=== PATIENT | female | born 1985 | race Caucasian/White ===

== ENCOUNTER 2016-10-19 18:15 | Observation (INO) | payer OTHER ==
[~2016-10-19] VITALS: Ht 149.9 cm; Wt 50.3 kg
[~2016-10-19 18:15] MED LIST: IBUP-1480 PO; OXYC-130 PO
[2016-10-19 18:28] VITALS: BP_SYST 109
== END 2016-10-19 19:10 | disposition home or self-care (01) ==
LOC: SPU 18:15
PROVIDERS: ADMIT Obstetrics & Gynecology; ATTEND Obstetrics & Gynecology
DX: O26.893 Other specified pregnancy related conditions, third trimester (principal); R10.9 Unspecified abdominal pain; Z3A.38 38 weeks gestation of pregnancy
CPT/HCPCS: 81002; G0378

== ENCOUNTER 2016-10-26 05:05 | Inpatient (IN) | payer OTHER ==
[~2016-10-26] VITALS: Ht 149.9 cm; Wt 49.9 kg
[2016-10-26] MEDS ORDERED: LR 1,000 ML IV ONE ×2 (05:13→08:14)
[2016-10-26] MEDS ORDERED: CEFAZOLIN 2 GM IVPB PREMIX 50 ML IV ONE (05:15)
[2016-10-26 07:01] VITALS: BP 135/83; PULSE 86; RESP 20; TEMP 97.9
[2016-10-26] MEDS ORDERED: LR 1,000 ML IV.SOLN IV ONE (07:11)
[2016-10-26] MEDS ORDERED: ONDANSETRON HCL 4 MG/2 ML VIAL IVP ONE (07:11)
[2016-10-26] MEDS ORDERED: NS IRRIG SOLN 1000 ML IR ONE (07:11)
[2016-10-26] MEDS ORDERED: DEXAMETHASONE SOD PHOSPHATE 4 MG/ML VIAL IVP ONE (07:11)
[2016-10-26] MEDS ORDERED: MORPHINE SULFATE 10MG/10ML PF AMP EP ONE (07:11)
[2016-10-26] MEDS ORDERED: OXYTOCIN 10 UNIT/ML VIAL IV ONE (07:11)
[2016-10-26] MEDS ORDERED: DIPHENHYDRAMINE INJ 50 MG/ML VIAL IVP PRN (08:15)
[2016-10-26] MEDS ORDERED: NALOXONE HCL 0.4 MG/ML AMP (NARCAN) IVP PRN (08:15)
[2016-10-26] MEDS ORDERED: fentaNYL CITRATE/PF 100 MCG/2 ML AMP IVP PRN (08:15)
[2016-10-26] MEDS ORDERED: ePHEDrine sulfate 50 MG/ML VIAL IVP PRN (08:15)
[2016-10-26] MEDS ORDERED: ONDANSETRON HCL 4 MG/2 ML VIAL IVP PRN ×2 (08:15)
[2016-10-26] MEDS ORDERED: MEPERIDINE HCL/PF 25 MG/ML DISP.SYRIN IVP PRN (08:15)
[2016-10-26] MEDS ORDERED: KETOROLAC TROMETHAMINE 30 MG VIAL IM PRN (08:15)
[2016-10-26] MEDS ORDERED: NALBUPHINE HCL 10 MG/ML AMP IVP PRN (08:15)
[2016-10-26 08:44] VITALS: BP 114/85
[2016-10-26] MEDS ORDERED: BISACODYL 10 MG/SUPPOSITORY RC PRN (08:45)
[2016-10-26] MEDS ORDERED: MEASLES,MUMPS&RUBELLA VACC/PF 12500 UNIT/0.5 ML VIAL SUBQ PRN (08:45)
[2016-10-26] MEDS ORDERED: ANUSOL 1 EA SUPP.RECT (PREPARATION H) RC PRN (08:45)
[2016-10-26] MEDS ORDERED: SENNOSIDES/DOCUSATE SODIUM 1 TAB TABLET(SENOKOT-S) PO PRN (08:45)
[2016-10-26] MEDS ORDERED: SIMETHICONE 80 MG TAB.CHEW PO PRN (08:45)
[2016-10-26] MEDS ORDERED: ACETAMINOPHEN 325 MG TABLET PO PRN (08:45)
[2016-10-26] MEDS ORDERED: OXYCODONE/ACETAMINOPHEN 5-325 TABLET PO PRN (08:45)
[2016-10-26] MEDS ORDERED: RHO(D) IMMUNE GLOBULIN/MALTOSE 1500 UNITS/1.3 ML (WINHRO) IM PRN (08:45)
[2016-10-26] MEDS ORDERED: LANOLIN 7 GM OINT. TP PRN (08:45)
[2016-10-26] MEDS ORDERED: DOCUSATE SODIUM 100 MG CAPSULE PO PRN (08:45)
[2016-10-26] MEDS ORDERED: LR 1,000 ML IV SCH (08:45)
[2016-10-26] MEDS ORDERED: OXYTOCIN/NORMAL SALINE 1,000 ML IV ONE (16:20)
[2016-10-26] MEDS ORDERED: TEMAZEPAM 15 MG CAPSULE PO PRN (21:00)
[2016-10-27] MEDS: OXYCODONE/ACETAMINOPHEN 5-325 TABLET PO PRN ×2 (04:04→16:00)
[2016-10-27] MEDS: IBUPROFEN 600 MG TABLET PO SCH ×4 (06:00→18:05)
[2016-10-27 07:41] LABS: BASOPHILS % (AUTO) 0.2 % (0.0-2.0); EOSINOPHILS % (AUTO) 0.4 % (0.0-4.0); HEMATOCRIT 33.2 % (36-48); HEMOGLOBIN 9.9 g/dL (12.0-16.0); LYMPHOCYTES # (AUTO) 1.4 K/uL (1.0-5.5); MEAN CORPUSCULAR HEMOGLOBIN 20 pg (27-31); MEAN CORPUSCULAR HGB CONC 30 % (32-36); MEAN CORPUSCULAR VOLUME 68 fL (79.0-98.0); MONOCYTES # (AUTO) 0.7 K/uL (0.0-1.0); MONOCYTES % (AUTO) 6.3 % (1.7-9.3); NEUTROPHILS # (AUTO) 9.6 K/uL (1.8-7.7); NEUTROPHILS % (AUTO) 81.1 % (40.0-70.0); PLATELET COUNT (AUTO) 178 K/uL (130-430); RED CELL DISTRIBUTION WIDTH 24.1 % (9.0-15.0); WHITE BLOOD COUNT (AUTO) 11.7 K/uL (4.8-10.8)
[2016-10-28] MEDS: IBUPROFEN 600 MG TABLET PO SCH ×2 (00:21→06:24)
[2016-10-28] MEDS: OXYCODONE/ACETAMINOPHEN 5-325 TABLET PO PRN (06:22)
== END 2016-10-28 10:25 | disposition home or self-care (01) | DRG 766 ==
LOC: SPU 05:05
PROVIDERS: ADMIT Obstetrics & Gynecology; ATTEND Obstetrics & Gynecology
PROC: 10D00Z1 Extraction of Products of Conception, Low, Open Approach (ICD-10-PCS; principal; 2016-10-26 07:30)
DX: O34.211 Maternal care for low transverse scar from previous cesarean delivery (principal); O99.02 Anemia complicating childbirth; O69.81X0 Labor and delivery complicated by cord around neck, without compression, not applicable or unspecified; O24.420 Gestational diabetes mellitus in childbirth, diet controlled; Z82.49 Family history of ischemic heart disease and other diseases of the circulatory system; Z83.3 Family history of diabetes mellitus; Z3A.39 39 weeks gestation of pregnancy; Z88.8 Allergy status to other drugs, medicaments and biological substances; Z90.49 Acquired absence of other specified parts of digestive tract; Z37.0 Single live birth
CPT/HCPCS: 36415; 82947-TC; 82962; 85025; 86886; 86900; 86901; 94760; J0690; J1100; J1885; J2274; J2405; J2590; J7120